=== PATIENT | male | born 1985 | race African-American/Black ===

== ENCOUNTER 2017-11-14 12:39 | Emergency (ER) | payer OTHER ==
[~2017-11-14] VITALS: Ht 188 cm; Wt 86.2 kg
[~2017-11-14 12:39] MED LIST: ACETAMINOPHEN-1 EAC1 PO; ANUSOL-HC21 GM RC; ANUSOL1 EACH RC; AUGMENTIN 875875 MG PO; IBUPROFEN 400400 M2 PO; MIRALAX255 GM PO; NAPROSYN500 MG PO; NOHOMEMEDICATIONS; NORCO 5-325 TA1 EACH PO; PENICILLIN V P500 MG; SALINE NOSE SPR45 ML NS
[2017-11-14 12:44] VITALS: BP 109/76
[2017-11-14] MEDS ORDERED: PREDNISONE 20 M20 MG PO (13:28)
[2017-11-14] MEDS ORDERED: HYDROCODONE-AP1 EAC6 PO (13:28)
[2017-11-14] MEDS ORDERED: CYCLOBENZAPRINE5 MG PO (13:28)
== END 2017-11-14 13:41 | disposition home or self-care (01) ==
LOC: ER 12:39
DX: S39.012A Strain of muscle, fascia and tendon of lower back, initial encounter (principal); F17.210 Nicotine dependence, cigarettes, uncomplicated; X58.XXXA Exposure to other specified factors, initial encounter; Y92.89 Other specified places as the place of occurrence of the external cause; Y93.89 Activity, other specified; Y99.8 Other external cause status